=== PATIENT | female | born 1990 | race Hispanic/Latino ===

== ENCOUNTER → 2025-01-06 11:55 | Outpatient (CLI) | payer OTHER, SELFPAY ==
[2025-01-09 18:36] LABS: Gest Age on Col Date 16.6 weeks (.); OSBR Risk 1IN 3133 (.)
[2025-01-12 12:22] LABS: PDF SEE SCANNED REPORTS
== END ==
PROVIDERS: Referring Provider Obstetrics & Gynecology; Visit Provider Obstetrics & Gynecology
DX: O09.899 Supervision of other high risk pregnancies, unspecified trimester (principal); Z3A.16 16 weeks gestation of pregnancy
CPT/HCPCS: 36415; 82105

== ENCOUNTER → 2025-02-10 08:27 | Outpatient (CLI) | payer OTHER, SELFPAY ==
--- NOTE | 2025-02-10 08:29 | DI.US.S_ITS ---
PROCEDURE: US OB >= 14 WEEKS FETUS INDICATIONS: 20 weeks anatomy scan TECHNIQUE: Real-time scanning was performed of the fetus, with image documentation and biometric measurements. Calculations are based on the working [facility] of 06/19/2025. COMPARISON: None. FINDINGS: General: A single living intrauterine gestation is present. Presentation: Vertex. Placenta: Placental position is anterior , without previa. Amniotic fluid index: 17.4 cm, normal range is 5-24 cm. Single deepest vertical pocket is 4.9 cm. heart rate: 136 beats per minute. Maternal cervical canal: 4.2 cm long. Normal lower limit is 2.5 cm. biometrics: Biparietal diameter: 5.3 cm, 22 week 0 day Head circumference: 20.4 cm, 22 week 3 day Abdominal circumference: 19.0 cm, 22 week 0 day Femur length: 3.7 cm, 21 week 4 day Clinically estimated gestational age: 21 week 4 day Composite gestational age from present scan: 22 week 0 day Estimated weight and percentile: 459 g, 62% Anatomic survey: Neuro: Ventricles are non-dilated at less than 10 mm. Cisterna magna is normal at 3-11 mm. Cerebellum is normal in size and morphology. Nuchal skin fold: Normal at less than 6 mm between 14-21 weeks gestational age. Face: Not well seen Spine: No evidence for spina bifida. Heart: Not well seen Diaphragm: Diaphragm is intact. Stomach: Left-sided stomach is present. Kidneys: No hydronephrosis. Normal is less than 5 mm in 2nd trimester, less than 7 mm in 3rd trimester. Cord: 3-vessel cord has orthotopic insertion. Bladder: Normal in size. Extremities: All 4 extremities identified. IMPRESSION: Single live intrauterine consistent with 22 week 0 day gestation Facial profile and cardiac views are not well seen. The remainder of the anatomic survey is within normal limits. Approved by: Leonides Rios M.D. on 02/10/2025 at 17:02
== END ==
LOC: US 08:29
PROVIDERS: Referring Provider Obstetrics & Gynecology; Visit Provider Obstetrics & Gynecology
DX: Z34.82 Encounter for supervision of other normal pregnancy, second trimester (principal); Z3A.22 22 weeks gestation of pregnancy
CPT/HCPCS: 76811

== ENCOUNTER → 2025-03-03 08:57 | Outpatient (CLI) | payer OTHER, SELFPAY ==
[2025-03-03 10:44] LABS: Hematocrit 32.6 % (36-46); Hemoglobin 11.3 g/dL (12.0-16.0)
[2025-03-03 11:03] LABS: GTT (PREG) 1 Hour PP 50gm Dose 172 mg/dL (76-139)
== END ==
PROVIDERS: Referring Provider Obstetrics & Gynecology; Visit Provider Obstetrics & Gynecology
DX: Z13.1 Encounter for screening for diabetes mellitus (principal); Z13.0 Encounter for screening for diseases of the blood and blood-forming organs and certain disorders involving the immune mechanism
CPT/HCPCS: 36415; 82950; 85014; 85018

== ENCOUNTER → 2025-04-14 09:52 | Outpatient (CLI) | payer OTHER, SELFPAY ==
[2025-04-14 12:13] LABS: Glucose Fasting Gestational 85 mg/dL (76-95)
[2025-04-14 12:44] LABS: Glucose 1 Hour Gest 217 mg/dL (76-180)
[2025-04-14 13:56] LABS: Glucose Tol Interp,Gestational INTERPRETATION
[2025-04-14 14:16] LABS: Glucose 2 Hour Gest 145 mg/dL (76-155)
[2025-04-14 14:42] LABS: Glucose 3 Hour Gest 78 mg/dL (76-140)
== END ==
PROVIDERS: Referring Provider Obstetrics & Gynecology; Visit Provider Obstetrics & Gynecology
DX: O99.810 Abnormal glucose complicating pregnancy (principal)
CPT/HCPCS: 36415; 82951; 82952